=== PATIENT | female | born 1990 | race Caucasian/White ===

== ENCOUNTER 2016-08-18 05:51 | Emergency (ER) | payer OTHER ==
[~2016-08-18] VITALS: Ht 167.6 cm; Wt 88.5 kg
[~2016-08-18 05:51] MED LIST: DOXYCYCLINE 10100 MG PO; NAPROSYN500 MG PO
[2016-08-18] MEDS ORDERED: PEPCID20 MG PO (06:14)
[2016-08-18 06:38] VITALS: BP 124/82
== END 2016-08-18 06:39 | disposition home or self-care (01) ==
LOC: ER 05:51
DX: S10.86XA Insect bite of other specified part of neck, initial encounter (principal); L08.9 Local infection of the skin and subcutaneous tissue, unspecified; F17.210 Nicotine dependence, cigarettes, uncomplicated; Z98.890 Other specified postprocedural states; Z97.5 Presence of (intrauterine) contraceptive device; Y92.89 Other specified places as the place of occurrence of the external cause; W57.XXXA Bitten or stung by nonvenomous insect and other nonvenomous arthropods, initial encounter; Y93.89 Activity, other specified; Y99.8 Other external cause status